=== PATIENT | female | born 1990 | race Two or more races ===

== ENCOUNTER 2018-04-29 12:30 | Inpatient (IN) | payer OTHER ==
[~2018-04-29] VITALS: Ht 152.4 cm; Wt 3.2 kg
[2018-04-29] MEDS ORDERED: SYMBICORT 16010.2 GM IH (18:24)
[2018-04-29] MEDS ORDERED: SINGULAIR10 MG PO (18:24)
[2018-04-29] MEDS ORDERED: OBTREX DHA PRE1 EACH PO (18:24)
== END 2018-05-09 16:19 | disposition home or self-care, planned readmission (81) | DRG 788 ==
LOC: LDR 05-05 12:30 → OB/GYN 05-06 08:00 → O/R 05-06 08:00 → OB/GYN 05-06 13:30
PROVIDERS: Obstetrics & Gynecology
PROC: 4A1HXCZ Monitoring of Products of Conception, Cardiac Rate, External Approach (ICD-10-PCS; 2018-05-06)
PROC: 4A033R1 Measurement of Arterial Saturation, Peripheral, Percutaneous Approach (ICD-10-PCS; 2018-05-06)
PROC: 10D00Z1 Extraction of Products of Conception, Low, Open Approach (ICD-10-PCS; principal; 2018-05-06 07:00)
DX: O32.2XX0 Maternal care for transverse and oblique lie, not applicable or unspecified (principal); O34.13 Maternal care for benign tumor of corpus uteri, third trimester; D25.9 Leiomyoma of uterus, unspecified; Z3A.39 39 weeks gestation of pregnancy; Z37.0 Single live birth